=== PATIENT | female | born 1955 | race Caucasian/White ===

== ENCOUNTER 2018-03-17 15:40 | Inpatient (IN) | payer BC ==
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
--- OUTSIDE RECORDS SUMMARY | 2018-03-17 16:28 | XMS REPORT ---
:1955 External Reference #:[id number] Author Organization [employer] Address [address] [place] [address] [place] [address] Phone [phone] Care Team Providers Name Role Phone Patient's Choice Primary Care Physician Unavailable Payers Type Date Identification Numbers Payment Provider Subscriber Commercial Policy Number: [id number] [employer] Radha Dubon PayID: [id number] [address] [address] [place] [address] Problems Date Description Provider Status Onset: 03/17/2018 Closed fracture of lumbar vertebra Rizwan Antony MD Active without spinal cord injury Social History Type Date Description Comments Smoking Patient is a former smoker Allergies, Adverse Reactions, Alerts Date Description Reaction Status Severity Comments 03/17/2018 Codeine active 03/17/2018 Hydrocodone active Medications Medication Date Status Form Strength Qnty SIG Indications Ordering Provider Nuedexta / Active Capsules 20-10mg qd Unknown 0000 Loratadine / Active Capsules 10mg once a day Unknown 0000 for allergies as needed Sinemet / Active Tablets 25-100mg 1 by mouth Unknown 0000 three times a day 30 mintues prior to meals Rivastigmine / Active Patches 4.6mg/24HR 1 patch Unknown Transdermal 0000 24HR each day System Pantoprazole 00/ Active Tablets DR 40mg 1 by mouth Unknown Sodium 0000 every day Lexapro 0000/ Active Tablets 10mg 1 by mouth Unknown 0000 every day Vital Signs Date Vital Result Comment 03/17/2018 BP Systolic Sitting 100 mmHg BP Diastolic Sitting 60 mmHg Pain Level 8 Results Description No Information Procedures Description No Information Plan of Care 03/17/2018 - Rizwan Antony [id number] Unsp fracture of unsp lumbar vertebra, init for clos fxNew Xrays:CT Spine Lumbar W/OSP Lumbarsacral 4+ VWSSpine Thoracolumbar StandingReferral:Jose Rodriguez M.D., Neurology
--- OUTSIDE RECORDS SUMMARY | 2018-03-17 16:28 | XMS REPORT ---
:1955 External Reference #:[id number] Author Organization [employer] Address [address] [place] [address] [place] [address] Phone [phone] Care Team Providers Name Role Phone Patient's Choice Primary Care Physician Unavailable Payers Type Date Identification Numbers Payment Provider Subscriber Commercial Policy Number: [id number] [employer] Radha Dubon PayID: [id number] [address] [address] [place] [address] Problems Date Description Provider Status Onset: 03/17/2018 [...]
[2018-03-17 16:38] LABS: ABS Basophils 0.1 10^3/ul (0-0.2); ABS Eosinophils 0.1 10^3/ul (0-0.6); ABS Lymphocytes 1.6 10^3/ul (1.0-4.8); ABS Monocytes 0.7 10^3/ul (0-0.8); ABS Neutrophils 8.6 10^3/ul (1.5-7.7); ABS Nucleated RBC 0 10^3/ul; Eosinophil % 1.3 % (0-6); Hematocrit 40 % (35-47); Hemoglobin 13.8 g/dl (12.0-16.0); Lymphocyte % 14.1 % (25-47); Mean Corpuscular HGB Conc 35 g/dl (31-36); Mean Corpuscular Hemoglobin 34 pg (27-31); Mean Corpuscular Volume 99 fL (80-97); Mean Platelet Volume 7.6 um3 (7.4-10.4); Nucleated Red Blood Cells % 0.1; Platelet Count 364 10^3/ul (150-450); Red Blood Count 4.02 10^6/ul (4.00-5.40); Red Cell Distribution Width 14 % (10.5-15); White Blood Count 11.1 10^3/ul (3.5-10.8)
[2018-03-17 16:51] LABS: INR 0.98 (0.77-1.02)
[2018-03-17 17:05] LABS: EGFR Non-African American 66.4 (>60)
--- NOTE | 2018-03-17 17:22 | RAD ---
INDICATION: Lumbar spine pain COMPARISON: There are no prior studies available for comparison. TECHNIQUE: Contiguous axial sections were obtained beginning lower thoracic vertebra and continuing through the sacrum. Images were reconstructed in the sagittal and coronal planes. FINDINGS: There are compression fractures of the T12 and L1 vertebral bodies or severely affecting L1 and T12. At the posterior superior endplate of the L1 vertebral body there is retropulsion of bony fragments measuring 6 mm from the posterior boundary of the middle column. There is vacuum disc phenomenon at T11/T12 and L1/L2. On the axial images there is moderate to severe central canal stenosis at T12/L1 due to bony retropulsion as well as protrusion of the intervertebral disc space and facet arthropathy. At other levels there is loss of intervertebral disc height. There is broad-based disc protrusion at L4/L5 combining with thickening of the ligamentum flavum and facet arthropathy to cause a mild degree of central canal and mild bilateral neural foraminal stenoses. There is coarse atherosclerotic calcification of the aorta. IMPRESSION: 1. Age indeterminate compression deformities of T12 and L1. At L1 there is retropulsion of bony fragments at the posterior superior endplate of the vertebral body contributing to moderate central canal stenosis. 2. Degenerative changes noted at additional levels as well.
--- NOTE | 2018-03-17 17:39 | RAD ---
INDICATION: Preoperative chest x-ray in a patient with back pain COMPARISON: None. TECHNIQUE: Single AP view of the chest was obtained. FINDINGS: The heart and mediastinum exhibit normal size and contour. The lungs are grossly clear. There is no evidence of a large pleural effusion. Visualized bones are normal for the patient's age. IMPRESSION: No radiographic evidence for acute cardiopulmonary abnormality on this single AP view chest x-ray.
[2018-03-17 17:55] LABS: Urine Appearance Clear; Urine Blood Negative (Negative); Urine Color Straw; Urine Ketones Negative (Negative); Urine Protein Negative (Negative); Urine Red Blood Cell Trace(0-2/hpf) (Absent); Urine Specific Gravity 1.003 (1.010-1.030); Urine Urobilinogen Negative (Negative); Urine White Blood Cell 1+(6-10/hpf) (Absent)
[2018-03-17] MEDS ORDERED: Morphine INJ* 2 MG/ML 1 ML SYRINGE (TWO MG - NEW SYRINGE VERSION) IV PRN (17:56)
[2018-03-17] MEDS ORDERED: Acetaminophen TAB* 325 MG PO PRN (17:56)
[2018-03-17] MEDS ORDERED: Ondansetron INJ* 2 MG/ML VIAL IV PRN (17:56)
--- NOTE | 2018-03-17 18:43 | RAD ---
INDICATION: Back pain COMPARISON: None. TECHNIQUE: 2 views of the lumbar spine and 2 views of the thoracic spine were obtained. FINDINGS: There are compression deformities of T12 and L1, more severely affecting L1. There appears to be retropulsion of fragments of the superior posterior endplate of the L1 vertebral body. Degenerative changes at other levels include loss of intervertebral disc height and anterior marginal osteophyte formation, most severely affecting the mid-level and lower thoracic spine. The vertebra are otherwise appropriately aligned. IMPRESSION: Degenerative changes as described above including age indeterminate compression deformities of T12 and L1.
--- NOTE | 2018-03-17 18:45 | RAD ---
INDICATION: Back pain COMPARISON: Same day CT of the L-spine TECHNIQUE: Axial source images of the thoracic spine were acquired with coronal and sagittal reformatting. FINDINGS: Degenerative changes of the thoracic spine includes loss of intervertebral disc height and anterior marginal osteophyte formation at the mid-level and lower thoracic spine. As was visualized on same-day lumbar CT scan, there is compression deformity involving the superior endplate of the T12 vertebral body as well as a more severe compression deformity of the L1 vertebral body. The superior posterior endplate of the L1 vertebral body exhibits a small degree of retropulsion. There is calcified atherosclerosis of the lower abdominal aorta. Lungs are grossly clear but there are centrilobular emphysematous changes. IMPRESSION: Compression deformities of T12 and L1 as were identified and described on the same day CT of the lumbar spine. There are degenerative changes of the thoracic spine more superiorly but no compression fractures and severe at T12 and L1
[2018-03-17] MEDS ORDERED: Carbidopa/Levodop 25/100 MG TAB(*) PO SCH (21:00)
[2018-03-17] MEDS ORDERED: Heparin VIAL(*) 5000 UNITS/ML VIAL (FIVE THOUSAND) SUBCUT SCH (22:00)
--- NOTE | 2018-03-17 22:34 | HP ---
CC: Provider at [facility] * HISTORY AND PHYSICAL: DATE OF ADMISSION: 03/17/18 PRIMARY CARE PROVIDER: Provider at [facility]. CHIEF COMPLAINT: Back pain. HISTORY OF PRESENT ILLNESS: Ms. Dubon is a 62-year-old female who has a history of cortical basal ganglionic degeneration, who [place] [facility] Antony[place] office for back imaging. The patient had been living at an assisted living facility in [place], [place], up until what sounds to be October 2017. At that time she took a fall. She then developed less and less mobility. She was then sent to [facility] for subacute rehab. From there, she ultimately transitioned into long-term care. The patient had known traumatic injury to her back; however, she had not been able to be followed up by a neurosurgeon. Ultimately, an appointment was made for today with Dr. Antony. He recommended the patient present to the emergency room and ultimately be admitted for evaluation and management of what he presumed to be a severe compression fracture. The patient herself is unable to provide any significant history. She is able to answer yes/no questions fairly decently, but she does deny pain. She reports getting up and walking with a walker a couple of times since she has been transitioned to the long- term care, but the patient's sister states that she has not seen this. There have also been falls where the patient has fallen from her wheelchair. PAST MEDICAL HISTORY: 1. Cortical basal ganglionic degeneration. 2. History of left breast cancer, status post XRT and chemotherapy as well as left lumpectomy. PAST SURGICAL HISTORY: 1. Left lumpectomy. 2. Myomectomy. 3. Bilateral cataract extractions. MEDICATIONS: 1. Nuedexta 20-10 one tab p.o. daily. 2. Protonix 40 mg p.o. daily. 3. Lexapro 10 mg p.o. daily. 4. Rivastigmine patch 4.6 mg one patch topically daily. 5. Sinemet 25/100 one tab p.o. t.i.d. 6. Loratadine 10 mg p.o. daily p.r.n. allergies. ALLERGIES: HYDROCODONE causes severe confusion. FAMILY HISTORY: Mom at the age of 94 of complications from diabetes. Dad at the age of 68 of lung cancer. SOCIAL HISTORY: The patient is a former smoker. She smoked for approximately 20 years. She quit likely in the early 90s, she does not remember exactly when. She does not drink alcohol. She has never been . She has no children. Her sister Ambreen is her healthcare proxy. REVIEW OF SYSTEMS: A complete 11-system review of systems is obtained. Pertinent positives and negatives are as per HPI. In addition, the patient does complain of constipation as well as anxiety and depression. Her sister notes that the patient frequently tends to lean to the right. PHYSICAL EXAMINATION GENERAL: The patient is a well-developed middle-aged female seen lying in the stretcher, in no acute distress. VITAL SIGNS: Blood pressure 138/71, pulse 66, respirations 16, temp 98.7, O2 sat 97% on room air. HEENT: Pupils are equal and round. There is evidence of prior cataract extraction. Extraocular muscles are intact. Oropharynx is clear. Oral mucosa is moist. There is no submandibular, cervical or supraclavicular adenopathy. Thyroid is not enlarged. No thyroid nodules noted. The patient's face is flushed. PULMONARY: Lungs are clear to auscultation bilaterally. CARDIAC: Normal S1, S2. Regular rate and rhythm. I do not appreciate any murmurs. There is no lower extremity edema. ABDOMEN: Bowel sounds are present. Abdomen is soft, nontender, nondistended. MUSCULOSKELETAL: There is no cyanosis or clubbing of the digits. There is full active range of motion of the upper extremities. Lower extremities, range of motion at the hip flexors is limited. SKIN: Warm and dry. There are no rashes. NEUROLOGIC: Cranial nerves II through XII appear to be grossly intact. The patient does have somewhat of a masked facies. Sensation is intact to light touch throughout. Strength is normal in the upper extremities and distal lower extremities but slightly reduced in the proximal lower extremities. PSYCH: The patient is alert. She is oriented to situation. LABORATORY AND DIAGNOSTIC DATA: WBC 11.1, hemoglobin 13.8, hematocrit 40, platelets 364,000. INR 0.98. Sodium 138, potassium 4.3, chloride 102, CO2 of 30. BUN 13, creatinine 0.86. Glucose 102. Lactic acid 1.4. Calcium 9.5. Bilirubin 0.4. AST 19, ALT 5, alk phos 93. Troponin 0.01. Albumin 3.8. TSH 1.25. Urinalysis reveals trace leukocyte esterase, 1+ wbc and 2+ bacteria. Lumbar spine CT reveals age-indeterminate compression deformities of T12 and L1. At L1, there is retropulsion of bony fragments at the posterior-superior endplate at the vertebral body contributing to moderate central canal stenosis. Degenerative changes are noted at additional levels as well. Thoracic spine CT, compression deformities of T12 and L1 as were identified and described on the same day CT of the lumbar spine. Chest x-ray, no radiographic evidence for acute cardiopulmonary abnormality on the single AP view chest x-ray. Lumbar spine x-ray, degenerative changes and age-indeterminate compression deformities at T12 and L1. Thoracic spine x-ray, degenerative changes and age-indeterminate compression deformities of T12 and L1. ASSESSMENT AND PLAN: Ms. Dubon is a 62-year-old female who sustained a fall approximately four months ago, who has been declining since, now sent from Dr. Antony' office for evaluation of traumatic compression fracture. 1. T12 and L1 compression fractures. The patient will be seen in consultation in the hospital by Dr. Antony. I spoke with him on the phone this evening. He recommends obtaining an MRI of the lumbar spine up to T10 for better delineation of the fracture and spinal canal. Surgery may be recommended to the patient and her sister; however, the patient's sister does have concerns about the patient undergoing surgery. Tomorrow, I will reach out to the patient 's prior neurologist, Dr. Izabel Gonzáles at [facility] to get her opinion on the patient proceeding with surgery. 2. Gastroesophageal reflux disease. We will continue PPI. 3. Cortical basal ganglionic degeneration. The patient will continue on her Sinemet. Depending on how long she is in the hospital, we may need to order Exelon patches. 4. Depression and anxiety. The patient will continue on Lexapro. 5. DVT prophylaxis. According to the Adult Thrombosis Prophylaxis Risk Factor Assessment Guide, the patient has a total risk factor score of 6 making her the highest risk. She will be placed on heparin 5000 units subcutaneous q.8 hours. 6. Code status is DNR. TIME SPENT: Sixty five minutes were spent admitting this patient of which greater than half was spent [id number] with the patient and her sister reviewing her history and performing a physical exam. [id number]/[facility] #: [id number] KENNY
[2018-03-18] MEDS: Carbidopa/Levodop 25/100 MG TAB(*) PO SCH ×4 (00:06→20:32)
[2018-03-18] MEDS: Heparin VIAL(*) 5000 UNITS/ML VIAL (FIVE THOUSAND) SUBCUT SCH ×3 (00:09→16:33)
[2018-03-18] MEDS: NS 0.9% 1000 ML* 1,000 ML IV SCH ×2 (00:10→15:54)
--- NOTE | 2018-03-18 08:22 | RAD ---
HISTORY: further eval T12 and L1 fractures COMPARISONS: CT dated March 17, 2018 TECHNIQUE: The following sequences were obtained of the lumbar spine: Sagittal and axial T1- and T2-weighted images, coronal T2-weighted images, and sagittal STIR images. FINDINGS: SPINAL CORD, CONUS, AND CAUDA EQUINA: The visualized spinal cord, conus, and cauda equina are normal in caliber, position, and signal intensity. ALIGNMENT: The alignment is normal. VERTEBRAL BODIES: There is bone edema with loss of vertebral body height at T12 and L1. There is moderate retropulsion of the superior endplate of L1. JOINTS: There is mild facet osteoarthritis. MUSCULATURE: There is mild fatty infiltration. INTERVERTEBRAL DISCS: There is mild diffuse loss of intervertebral disc height and T2 signal throughout the spine. AXIAL IMAGES: T10-T11: There is no significant neural foraminal narrowing of central canal stenosis. T11-T12: There is no significant neural foraminal narrowing of central canal stenosis. T12-L1: There is moderate narrowing of central canal secondary to retropulsion of the superior endplate of L1. There is mild bilateral neural foraminal narrowing. L1-L2: There is bilateral facet hypertrophy. There is no significant neural foraminal narrowing of central canal stenosis. L2-L3: There is no disc herniation, spinal stenosis, or neuroforaminal narrowing. L3-L4: There is a broad-based disc bulge with bilateral facet hypertrophy. There is mild bilateral neural foraminal narrowing. There is mild narrowing of the central canal. L4-L5: There is bilateral facet hypertrophy. There is mild bilateral neural foraminal narrowing. There is no significant central canal stenosis. L5-S1: There is bilateral facet hypertrophy. There is mild bilateral neural femoral narrowing. There is no significant central canal stenosis. SOFT TISSUES: The visualized soft tissues of the abdomen are unremarkable. There is no ligamentous disruption or edema to suggest ligamentous injury. OTHER: None. IMPRESSION: 1. ACUTE/SUBACUTE COMPRESSION FRACTURES OF T12 AND L1 WITH RETROPULSION OF THE SUPERIOR ENDPLATE OF L1 RESULTING IN MODERATE NARROWING OF THE CENTRAL CANAL AT THIS LEVEL. 2. DEGENERATIVE DISC DISEASE AND OSTEOARTHRITIS. 3. THERE IS MILD NARROWING OF CENTRAL CANAL AT L3-L4. THERE IS MULTILEVEL NEUROFORAMINAL NARROWING DESCRIBED ABOVE. R2
[2018-03-18] MEDS: Citalopram TAB* 20 MG PO SCH (08:24)
[2018-03-18] MEDS: Omeprazole CAP* 20 MG PO SCH (08:24)
--- NOTE | 2018-03-18 18:26 | PN ---
Subjective Date of Service: 03/18/18 Interval History: Pt is feeling ok. She denies any pain. She denies SOB. She states she needs something but I can not understand what she is asking. Objective Active Medications: Acetaminophen (Tylenol Tab*) 650 mg PO Q4H PRN PRN Reason: PAIN Carbidopa/Levodopa (Sinemet 25/100 Tab(*)) 1 tab PO 0900,1400,2100 [facility] Last Admin: 03/18/18 14:04 Dose: 1 tab Citalopram Hydrobromide (Celexa Tab*) 20 mg PO DAILY [facility] Last Admin: 03/18/18 08:24 Dose: 20 mg Heparin Sodium (Porcine) (Heparin Vial(*)) 5,000 units SUBCUT 0000,0800,1600 [facility] Last Admin: 03/18/18 16:33 Dose: 5,000 units Sodium Chloride (Ns 0.9% 1000 Ml*) 1,000 mls @ 75 mls/hr IV PER RATE [facility] Last Admin: 03/18/18 15:54 Dose: 75 mls/hr Ceftriaxone Sodium 1 gm/ (Sodium Chloride) 50 mls @ 200 mls/hr IVPB Q24H [facility] Morphine Sulfate (Morphine Inj ((Syringe))*) 2 mg IV Q4H PRN PRN Reason: PAIN - MILD Omeprazole (Prilosec Cap*) 20 mg PO DAILY [facility] Last Admin: 03/18/18 08:24 Dose: 20 mg Ondansetron HCl (Zofran Inj*) 4 mg IV Q6H PRN PRN Reason: NAUSEA Tramadol HCl (Ultram*) 50 mg PO Q12H PRN PRN Reason: PAIN Vital Signs - 8 hr 03/18/18 03/18/18 11:23 15:46 Temperature 98.0 F 97.5 F Pulse Rate 66 68 Respiratory 16 20 Rate Blood Pressure 126/68 136/78 (mmHg) O2 Sat by Pulse 98 96 Oximetry Oxygen Devices in Use Now: None Appearance: Middle aged female sitting up in bed, NAD Eyes: No Scleral Icterus Ears/Nose/Mouth/Throat: Mucous Membranes Moist Respiratory: Symmetrical Chest Expansion and Respiratory Effort, Clear to Auscultation - anteriorly Cardiovascular: NL Sounds; No Murmurs; No JVD, RRR, No Edema Abdominal: NL Sounds; No Tenderness; No Distention Extremities: No Clubbing, Cyanosis Skin: No Nodules or Sclerosis Neurological: - - alert, oriented to self Result Diagrams: 03/17/18 16:31 03/17/18 16:31 Microbiology and Other Data: Microbiology 03/17/18 17:41 Urine Culture - Preliminary Urine Escherichia Coli 03/18/18 00:13 Nasal Screen MRSA (PCR) - Final Nasal Mrsa Not Detected Assess/Plan/Problems-Billing 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 - Patient Problems (1) Compression fracture Current Visit: Yes Status: Acute Code(s): [id number] - SNOMED Code(s): 267006790 Comment: No pain per pt. Await recommendations from Dr. Antony. I spoke with the patient's neurologist who has concerns with the patient undergoing surgery. She does not know if there is a true indication to take the patient as she does not report pain or have loss of bowel/bladder control. If there was a palliative reason to go to surgery she felt that would be appropriate but she does not think the patient will become suddenly much more ambulatory than she already is. (2) Corticobasal degeneration Current Visit: Yes Status: Acute Code(s): G31.85 - CORTICOBASAL DEGENERATION SNOMED Code(s): 01796276 Comment: Continue current medication regimen. (3) UTI (urinary tract infection) Current Visit: Yes Status: Acute Comment: Pts urine grew E coli. Will start ceftriaxone for UTI. (4) DVT prophylaxis Current Visit: Yes Status: Acute Code(s): [id number] - SNOMED Code(s): 859471247 Comment: SQ heparin (5) DNR (do not resuscitate) Current Visit: Yes Status: Acute
[2018-03-18] MEDS: cefTRIAXone(*) 1 GM in NS 0.9% 50 ML* 50 ML IVPB SCH (20:03)
[2018-03-19] MEDS: Heparin VIAL(*) 5000 UNITS/ML VIAL (FIVE THOUSAND) SUBCUT SCH ×4 (00:22→23:33)
[2018-03-19] MEDS: traMADol TAB* 50 MG PO PRN ×2 (04:28→16:26)
--- NOTE | 2018-03-19 05:24 | CONS ---
CONSULTATION REPORT: DATE OF CONSULT: 03/18/18 - ROOM #340 HISTORY OF PRESENT ILLNESS: The patient is a very pleasant 62-year-old right- handed female with a history of corticobasal ganglionic degeneration, who was seen yesterday in outpatient surgical clinic. The patient was reported to have sustained a fall on 10/31/17, while she was living in an Assisted Living Facility. The patient at that time had difficulty with ambulation. She had to walk with a walker and has significant dementia. She was transferred to the local hospital and after further investigations, she was diagnosed with L1 fracture and was treated conservatively. The patient had a repeat MRI of the lumbar spine on 02/05/18, that revealed progression of her L1 fracture per report and she was referred to our office as an outpatient consultation. The patient was found to have significant weakness in hip flexion as well as significant amount of pain. Because of her clinical condition as well as the difficulty with social support, she was advised to come to the emergency room for further evaluation and further imaging. The patient was currently admitted by Internal Medicine service after being diagnosed with the chronic L1 burst fracture with moderate retropulsion as well as with subacute superior compression fracture of T12. The patient reports this morning that her pain has significantly improved, and she is lying comfortably in bed. She is a poor historian, but she reports that she has no weakness, numbness, or tingling of her extremities. She denies any urinary or GI incontinence and per report, the patient knows when to ask for bed montes, although as her sister reported earlier in the office, the patient is unable to ambulate to the bathroom and she ends up soiling herself. The patient was followed by her neurologist in [place] for her corticobasal ganglionic degeneration and the patient's sister was very reluctant to consider surgical intervention even if it was an option because of her poor neurological baseline. 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 She is single, lives at the senior care in rehabilitation facility. The patient has no children. The patient's sister is her healthcare proxy. PAST MEDICAL HISTORY: 1. 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 3. Breast cancer status post history of lobectomy. 4. Myomectomy. 5. Cataract surgery. ALLERGIES: HYDROCODONE. MEDICATIONS: The patient at home was on: 1. Nuedexta. 2. Loratadine. 3. Sinemet. 4. Rivastigmine. 5. Pantoprazole. 6. Lexapro. FAMILY HISTORY: Noncontributory. SOCIAL HISTORY: Tobacco negative. She was a former smoker. Alcohol negative. Recreational drug use negative. PHYSICAL EXAM: The patient is not in acute distress. She is resting comfortably in her bed. She does not complain of any pain. She has a free range of motion of cervical spine. She has no tenderness over her cervical, thoracic, or lumbar spine. She is awake, alert, and oriented x2. Her pupils are equal and reactive. Cranial nerves II through XII grossly intact. Motor 4 to 5/5 in all extremities with exception of hip flexion, which is 4-/5. Sensory is grossly intact to light touch. Deep tendon reflexes +1 bilaterally. No clonus. No Babinski. Adams's negative. Straight leg raising test negative in the sitting position. IMAGING DATA: The patient had a CT scan of her lumbar-thoracic spine that revealed the known L1 burst fracture with retropulsion and moderate canal compromise as well as superior end-plate fracture, compression fracture T12, which is new compared to previous MRI from January. The patient had also thoracic and lumbar spine x-rays that revealed similar findings in the available x-rays. The patient does not have significant kyphosis at her lumbar fracture segment. The patient also had an MRI of the lumbar spine revealing subacute fractures at L1 as well as at T12 with evidence of retropulsion. There is no obvious cord compression, but the retropulsed fragments abut the patient's spinal cord. ASSESSMENT: This is a pleasant 62-year-old female with history of corticobasal ganglionic degeneration and recent fall in October 2017 with a known L1 burst fracture as well as a subacute T12 compression fracture. PLAN: The patient at this point is very comfortable. Based on her imaging, the patient may be a candidate for surgical intervention although after Dr. Swenson discussed with her neurologist, the patient's prognosis in terms of ability to ambulate as well as mental status is quite poor and believes she has significant limitations in her ability to ambulate and even stand and it is expected that this will naturally deteriorate over time. The patient is very comfortable and there are no obvious neurological deficits. Her TLICS score is 4 and at this point, offering surgery is a consideration, but given her comorbidities and her functional status, it might be very difficult for her to tolerate the procedure or gain significant benefits. We would recommend a thoracolumbar orthosis and attempt to obtain upright x-rays of thoracolumbar spine to assess her overall spinal alignment and the degree of kyphosis and we would be happy to discuss with patient's sister regarding the possibility of surgical intervention versus conservative treatments. At this point, we recommend bed rest and attempt to get out of bed only with brace in order to obtain the upright x-rays. Thank you for allowing us to participate in the care of this patient. Please do not hesitate to contact our office in case of any further questions or concerns regarding the care of this patient. [id number]/[facility] #: [id number] KENNY
[2018-03-19] MEDS: NS 0.9% 1000 ML* 1,000 ML IV SCH ×2 (06:15→21:20)
[2018-03-19] MEDS: Omeprazole CAP* 20 MG PO SCH (08:26)
[2018-03-19] MEDS: Citalopram TAB* 20 MG PO SCH (08:27)
[2018-03-19] MEDS: Carbidopa/Levodop 25/100 MG TAB(*) PO SCH ×3 (08:27→20:32)
[2018-03-19] MEDS: cefTRIAXone(*) 1 GM in NS 0.9% 50 ML* 50 ML IVPB SCH (17:48)
--- NOTE | 2018-03-19 18:16 | PN ---
Subjective Date of Service: 03/19/18 Interval History: No overnight events. She says she feels "okay" and denies pain. Objective Active Medications: Acetaminophen (Tylenol Tab*) 650 mg PO Q4H PRN PRN Reason: PAIN Carbidopa/Levodopa (Sinemet 25/100 Tab(*)) 1 tab PO 0900,1400,2100 [facility] Last Admin: 03/19/18 14:14 Dose: 1 tab Citalopram Hydrobromide (Celexa Tab*) 20 mg PO DAILY [facility] Last Admin: 03/19/18 08:27 Dose: 20 mg Docusate Sodium (Colace Cap*) 100 mg PO BID PRN PRN Reason: CONSTIPATION Heparin Sodium (Porcine) (Heparin Vial(*)) 5,000 units SUBCUT 0000,0800,1600 [facility] Last Admin: 03/19/18 16:23 Dose: 5,000 units Sodium Chloride (Ns 0.9% 1000 Ml*) 1,000 mls @ 75 mls/hr IV PER RATE [facility] Last Admin: 03/19/18 06:15 Dose: 75 mls/hr Ceftriaxone Sodium 1 gm/ (Sodium Chloride) 50 mls @ 200 mls/hr IVPB Q24H [facility] Last Admin: 03/19/18 17:48 Dose: 200 mls/hr Morphine Sulfate (Morphine Inj ((Syringe))*) 2 mg IV Q4H PRN PRN Reason: PAIN - MILD Omeprazole (Prilosec Cap*) 20 mg PO DAILY [facility] Last Admin: 03/19/18 08:26 Dose: 20 mg Ondansetron HCl (Zofran Inj*) 4 mg IV Q6H PRN PRN Reason: NAUSEA Polyethylene Glycol/Electrolytes (Miralax*) 17 gm PO DAILY [facility] Tramadol HCl (Ultram*) 50 mg PO Q12H PRN PRN Reason: PAIN Last Admin: 03/19/18 16:26 Dose: 50 mg Vital Signs - 8 hr 03/19/18 03/19/18 03/19/18 11:12 15:53 16:26 Temperature 97.6 F 98.0 F Pulse Rate 71 74 Respiratory 16 20 20 Rate Blood Pressure 124/77 132/98 (mmHg) O2 Sat by Pulse 94 94 Oximetry Oxygen Devices in Use Now: None Appearance: sleepy, alerts to voice Eyes: No Scleral Icterus Ears/Nose/Mouth/Throat: NL Teeth, Lips, Gums Neck: NL Appearance and Movements; NL JVP Respiratory: Symmetrical Chest Expansion and Respiratory Effort, Clear to Auscultation Cardiovascular: NL Sounds; No Murmurs; No JVD, RRR Abdominal: NL Sounds; No Tenderness; No Distention Lymphatic: No Cervical Adenopathy Skin: - - cogwheel rigidity Result Diagrams: 03/17/18 16:31 03/17/18 16:31 Microbiology and Other Data: Microbiology 03/17/18 17:41 Urine Culture - Preliminary Urine Escherichia Coli 03/18/18 00:13 Nasal Screen MRSA (PCR) - Final Nasal Mrsa Not Detected Assess/Plan/Problems-Billing 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 - Patient Problems (1) Compression fracture Current Visit: Yes Status: Acute Code(s): [id number] - SNOMED Code(s): 945293911 Comment: Evaluated by Dr. Luu; case also discussed between Dr. Swenson and patient's neurologist, who suggests a poor prognosis from an ambulation standpoint, and does not believe surgery would change that endpoint. I discussed this with her sister, who agrees but wishes to continue to be informed. Thoracolumbar brace obtained today. Check upright Xrays today (2) Corticobasal degeneration Current Visit: Yes Status: Acute Code(s): G31.85 - CORTICOBASAL DEGENERATION SNOMED Code(s): 00725314 Comment: Continue carbidopa/levodopa (3) UTI (urinary tract infection) Current Visit: Yes Status: Acute Comment: Pts urine grew E coli. Ceftriaxone day 2
[2018-03-19] MEDS: Docusate CAP* 100 MG PO PRN (23:33)
[2018-03-20] MEDS: Heparin VIAL(*) 5000 UNITS/ML VIAL (FIVE THOUSAND) SUBCUT SCH ×3 (08:08→23:43)
[2018-03-20] MEDS: Citalopram TAB* 20 MG PO SCH (09:13)
[2018-03-20] MEDS: Polyethylene Glycol 3350* 17 GM PACKET PO SCH (09:13)
[2018-03-20] MEDS: Carbidopa/Levodop 25/100 MG TAB(*) PO SCH ×3 (09:13→21:36)
[2018-03-20] MEDS: Omeprazole CAP* 20 MG PO SCH (09:13)
--- NOTE | 2018-03-20 10:18 | PN ---
Subjective Date of Service: 03/20/18 Interval History: PT attempted to work with her yesterday after the brace was applied but she could not stand. A star was required to get her out of bed. She is in the chair this morning. Her RN Taylor today reports increased spasticity and tremors and hallucinations. Ms. Dubon denies pain to me. She smiles appropriately to jokes but is unable to communicate her needs. She does nod yes and no. Objective Active Medications: Acetaminophen (Tylenol Tab*) 650 mg PO Q4H PRN PRN Reason: PAIN Last Admin: 03/19/18 23:32 Dose: 650 mg Carbidopa/Levodopa (Sinemet 25/100 Tab(*)) 1 tab PO 0900,1400,2100 [facility] Last Admin: 03/20/18 09:13 Dose: 1 tab Citalopram Hydrobromide (Celexa Tab*) 20 mg PO DAILY [facility] Last Admin: 03/20/18 09:13 Dose: 20 mg Docusate Sodium (Colace Cap*) 100 mg PO BID PRN PRN Reason: CONSTIPATION Last Admin: 03/19/18 23:33 Dose: 100 mg Heparin Sodium (Porcine) (Heparin Vial(*)) 5,000 units SUBCUT 0000,0800,1600 [facility] Last Admin: 03/20/18 08:08 Dose: 5,000 units Sodium Chloride (Ns 0.9% 1000 Ml*) 1,000 mls @ 75 mls/hr IV PER RATE [facility] Last Admin: 03/19/18 21:20 Dose: 75 mls/hr Ceftriaxone Sodium 1 gm/ (Sodium Chloride) 50 mls @ 200 mls/hr IVPB Q24H [facility] Last Admin: 03/19/18 17:48 Dose: 200 mls/hr Morphine Sulfate (Morphine Inj ((Syringe))*) 2 mg IV Q4H PRN PRN Reason: PAIN - MILD Last Admin: 03/20/18 08:08 Dose: 2 mg Omeprazole (Prilosec Cap*) 20 mg PO DAILY [facility] Last Admin: 03/20/18 09:13 Dose: 20 mg Ondansetron HCl (Zofran Inj*) 4 mg IV Q6H PRN PRN Reason: NAUSEA Polyethylene Glycol/Electrolytes (Miralax*) 17 gm PO DAILY [facility] Last Admin: 03/20/18 09:13 Dose: 17 gm Rivastigmine Tartrate (Exelon (Nf)) 1.5 mg PO TID [facility] Tramadol HCl (Ultram*) 50 mg PO Q12H PRN PRN Reason: PAIN Last Admin: 03/19/18 16:26 Dose: 50 mg Vital Signs - 8 hr 03/20/18 03/20/18 03/20/18 04:26 05:08 07:39 Temperature 97.7 F 98.8 F Pulse Rate 97 120 70 Respiratory 16 Rate Blood Pressure 99/21 120/69 150/83 (mmHg) O2 Sat by Pulse 95 96 Oximetry 03/20/18 03/20/18 08:08 09:46 Temperature Pulse Rate Respiratory 20 18 Rate Blood Pressure (mmHg) O2 Sat by Pulse Oximetry Oxygen Devices in Use Now: None Appearance: alert, comfortable in the chair, no distress Eyes: No Scleral Icterus Ears/Nose/Mouth/Throat: NL Teeth, Lips, Gums Neck: NL Appearance and Movements; NL JVP Respiratory: Symmetrical Chest Expansion and Respiratory Effort Cardiovascular: NL Sounds; No Murmurs; No JVD, RRR Abdominal: NL Sounds; No Tenderness; No Distention Lymphatic: No Cervical Adenopathy Extremities: No Edema Skin: No Rash or Ulcers Neurological: - - unable to test orientation. tremors throughout that improve with passive motion. she does not voluntarily lift her legs but when I lift them, she can hold them up. 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 - Patient Problems (1) Compression fracture Current Visit: Yes Status: Acute Code(s): [id number] - SNOMED Code(s): 587716250 Comment: She is considered to be a candidate for surgery with Dr. Luu , but the question remains whether this would help her prognosis for ambulation , sitting upright, or standing overall, given her underlying neurologic disorder that has caused a decline in her functional capacity even before the fracture, according to her sister Ambreen. Surgery naturally comes with risks but might yenifer her the ability to sit up in her wheelchair. If she does so, she may be at risk for more compression fractures requiring more surgery in the future. Not operating comes with the risks of worsening neurologic function and paralysis, but also the possibility that she may continue to heal with bracing. I discussed this again with Dr. Luu. Radha's sister Ambreen is supposed to be coming in today and I will discuss these options with her again. (2) Corticobasal degeneration Current Visit: Yes Status: Acute Code(s): G31.85 - CORTICOBASAL DEGENERATION SNOMED Code(s): 68566508 Comment: Continue carbidopa/levodopa Add back rivastigmine today, as I believe the withdrawal may be causing some of her hallucinations (3) UTI (urinary tract infection) Current Visit: Yes Status: Acute Comment: Pts urine grew E coli. Ceftriaxone day 3.
[2018-03-20] MEDS ORDERED: CMCS Rivastigmine CAP(NF) 1.5 MG CAP PO SCH (10:22)
[2018-03-20] MEDS: CMC:Rivastigmine PATCH 9.5 MG(NF) PATCH TRANSDERM SCH (13:08)
[2018-03-20] MEDS ORDERED: CMC:Rivastigmine CAP(NF) 1.5 MG CAP PO SCH (14:00)
--- NOTE | 2018-03-20 15:30 | PN ---
Hospitalist Progress Note Date of Service: 03/20/18 Case discussed at length with Radha's sister Ambreen and Dr. Luu. Ambreen wishes to pursue a conservative management plan and to avoid surgery for her sister. I explained to her the risk of worsening neurological decline including paralysis. We also discussed the risks of surgery. She prefers the risk of not operating. We will continue the thoracolumbar brace. SHe also related that rivastigmine pills have not worked for her in the past, so I discussed this with her neurologist Dr. Gonzáles in [place], and she recommended the higher dose rivastigmine patch that we have on formulary. Case management spoke with the patient's rehab facility, and they are unable to accept her back until Friday. In the meantime, Dr. Luu is recommending a CT brain and CT c-spine, which I am ordering.
--- NOTE | 2018-03-20 16:39 | RAD ---
indication: Confusion COMPARISON: None A CT scan of the brain and c-spine was performed without intravenous contrast enhancement. Contiguous axial sections were obtained from the lung apices through the vertex. BRAIN: The ventricles, cisterns and sulci exhibit mild symmetrical involutional changes.. No significant focal abnormality or mass effect is seen. The michelle-white differentiation is adequately maintained. There is no intracranial hemorrhage. No significant bony abnormality is present. The mastoid air cells are appropriately aerated. There is near complete opacification of the visualized portion of the right maxillary sinus. C-SPINE: On the sagittal view there is straightening of the normal cervical lordosis and apparent exaggerated kyphosis of the thoracic spine. The vertebral bodies and facet joints are otherwise appropriately aligned. Mild degenerative changes include loss of intervertebral disc height at multiple levels. There is no hyperdense material in the cervical canal to indicate hemorrhage. The visualized musculature and soft tissues are normal. There is no gross lymphadenopathy visualized. The visualized portion of the lung apices are clear. IMPRESSION: 1. No CT apparent acute intracranial abnormality. 2. Right maxillary sinusitis. 3. Degenerative changes of the cervical spine without fracture or severe spondylolisthesis.
[2018-03-20] MEDS: Amoxicillin/Clavulanate TAB* 500 MG PO SCH (21:36)
--- NOTE | 2018-03-20 23:40 | PN ---
Progress Note - Progress Note Date of Service: 03/20/18 SOAP: Subjective: []Patient was seen earlier today. No events ON. Unable to get upright with PT yesterday. No events ON. Sister at the bedside. Objective: []VSS AAOx1-2, ELOY, CN II-XII grossly intact Motor 4-5/5 except deangelo hip flexion 4/5. Increase tone in LEs Sensory grossly intact to light touch. Assessment: []62 yo f , CBGD fall L1 burst fructure, T12 superior compression fracture Plan: []Monitor VS, Neurochecks Patient is reported to have sustained an other fall in the [place], after her original fall in October, as her sister reports today. Per sister, patient's neurological condition is stable. Patient had spasticity of her extremities and cognitive decline prior to her initial fall. Discussed in extend patient's imaging, condition and treatment options. Discussed possibility of spine instability and offered the option of surgical intervention for stabilization of patient's spine. Discussed in extend expectations, limitations and possible complications with patient's sister. Also discussed possible risks of conservative treatment including prolonged immobilization, risk of DVT, PE, PNA, paralysis and . Given the poor cognitive status, limited mobility at baseline, comorbitities and poor prognosis from her CBGD per her neurologist, patient's sister elected to continue with conservative treatment, understanding risks, benefites and possible outcomes of all treatment options. We would obtain a baseline CT of head and C spine and continue with conservative treatment with TLSO brace, per patient's sister wishes. Greatly appreciate IM care. Mina Antony MD
[2018-03-20] MEDS: Docusate CAP* 100 MG PO PRN (23:43)
[2018-03-21] MEDS: Heparin VIAL(*) 5000 UNITS/ML VIAL (FIVE THOUSAND) SUBCUT SCH ×2 (08:23→16:42)
[2018-03-21] MEDS: CMC:Rivastigmine PATCH 9.5 MG(NF) PATCH TRANSDERM SCH (09:12)
[2018-03-21] MEDS: Amoxicillin/Clavulanate TAB* 500 MG PO SCH ×2 (09:13→21:10)
[2018-03-21] MEDS: Docusate CAP* 100 MG PO PRN (09:13)
[2018-03-21] MEDS: Polyethylene Glycol 3350* 17 GM PACKET PO SCH (09:13)
[2018-03-21] MEDS: Citalopram TAB* 20 MG PO SCH (09:13)
[2018-03-21] MEDS: Omeprazole CAP* 20 MG PO SCH (09:13)
[2018-03-21] MEDS: Carbidopa/Levodop 25/100 MG TAB(*) PO SCH ×3 (09:13→21:10)
--- NOTE | 2018-03-21 11:11 | PN ---
Subjective Date of Service: 03/21/18 Interval History: Patient seen and examined at bedside. Per NSG staff Pt had a seizure like episode (they described convulsing and unresponsiveness). Pt noted to have intermittent "jerky" movement of all extremities. Pt has frequent movements of extremities and cognitive decline at baseline. Denies fever, chills, shortness of breath, chest discomfort, N/V/D or pain. Pt is able to mostly answer yes or no questions. Family History: Unchanged from Admission Social History: Unchanged from Admission Past Medical History: Unchanged from Admission Objective Active Medications: Acetaminophen (Tylenol Tab*) 650 mg PO Q4H PRN Reason: PAIN Amoxicillin/Clavulanate Potassium (Augmentin Tab*) 500 mg PO BID RENEE Carbidopa/Levodopa (Sinemet 25/100 Tab(*)) 1 tab PO 0900,1400,2100 RENEE Citalopram Hydrobromide (Celexa Tab*) 20 mg PO DAILY RENEE Docusate Sodium (Colace Cap*) 100 mg PO BID PRN Reason: CONSTIPATION Heparin Sodium (Porcine) (Heparin Vial(*)) 5,000 units SUBCUT 0000,0800,1600 RENEE Morphine Sulfate (Morphine Inj ((Syringe))*) 2 mg IV Q4H PRN Reason: PAIN - MILD Omeprazole (Prilosec Cap*) 20 mg PO DAILY RENEE Ondansetron HCl (Zofran Inj*) 4 mg IV Q6H PRN Reason: NAUSEA Polyethylene Glycol/Electrolytes (Miralax*) 17 gm PO DAILY RENEE Rivastigmine (Exelon Patch(Nf)) 1 patch TRANSDERM DAILY RENEE Tramadol HCl (Ultram*) 50 mg PO Q12H PRN Reason: PAIN Vital Signs - 8 hr 03/21/18 03/21/18 03:35 07:26 Temperature 97.7 F 99.2 F Pulse Rate 66 65 Respiratory 16 20 Rate Blood Pressure 123/64 121/65 (mmHg) O2 Sat by Pulse 95 93 Oximetry Oxygen Devices in Use Now: None Appearance: NAD, laying in bed Ears/Nose/Mouth/Throat: Mucous Membranes Moist Respiratory: Symmetrical Chest Expansion and Respiratory Effort, Clear to Auscultation Cardiovascular: NL Sounds; No Murmurs; No JVD, RRR Abdominal: NL Sounds; No Tenderness; No Distention Extremities: No Edema Skin: No Rash or Ulcers Neurological: NL Muscle Strength and Tone, - - Alert and Oriented to self Nutrition: Taking PO's Result Diagrams: 03/17/18 16:31 03/17/18 16:31 Microbiology and Other Data: Microbiology 03/17/18 17:41 Urine Culture - Preliminary Urine Escherichia Coli 03/18/18 00:13 Nasal Screen MRSA (PCR) - Final Nasal Mrsa Not Detected Assess/Plan/Problems-Billing Assessment: 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 - Patient Problems (1) Compression fracture Code(s): [id number] - SNOMED Code(s): 015214384 Comment: - Per Dr. Luu she is a candidate for surgery, but the question remains whether this would help her prognosis for ambulation, sitting upright, or standing overall, given her underlying neurologic disorder that has caused a decline in her functional capacity even before the fracture, according to her sister Ambreen - Surgery naturally comes with risks but might yenifer her the ability to sit up in her wheelchair. If she does so, she may be at risk for more compression fractures requiring more surgery in the future. - Not operating comes with the risks of worsening neurologic function and paralysis, but also the possibility that she may continue to heal with bracing. - Discussed with Dr. Luu and Radha's sister Ambreen and plan is for conservative treatment (2) Corticobasal degeneration Code(s): G31.85 - CORTICOBASAL DEGENERATION SNOMED Code(s): 03589124 Comment: - Continue carbidopa/levodopa and rivastigmine (3) UTI (urinary tract infection) Comment: - Urine culture with E coli - Received 3/3 days of Ceftriaxone - Continue Augmentin (4) DVT prophylaxis Code(s): XAA0090 - SNOMED Code(s): 959304774 Comment: - SQ heparin (5) DNR (do not resuscitate) Status and Disposition: Inpatient. Plan for possible discharge back to rehab on Friday.
--- NOTE | 2018-03-21 14:34 | PN ---
Progress Note - Progress Note Date of Service: 03/21/18 SOAP: Subjective: [] No events ON. Tolerates PO. No complains of back pain. on brace. Objective: []]VSS AAOx1-2, ELOY, CN II-XII grossly intact Motor 4-5/5 except deangelo hip flexion 4/5. Increase tone in LEs Sensory grossly intact to light touch. Assessment: []62 yo f , CBGD fall L1 burst fructure, T12 superior compression fracture Plan: []Monitor VS, Neurochecks CT brain: No intracranial injury. CT C spine: No acute fracture. DC Planning Medical treatment of possible osteopenia/osteoporosis May folow in office in 4 weeks with new XR of T/L spine. Greatly appreciate IM care. Will be available if needed. Mina Antony MD
[2018-03-22] MEDS: Heparin VIAL(*) 5000 UNITS/ML VIAL (FIVE THOUSAND) SUBCUT SCH ×4 (07:37→23:59)
[2018-03-22] MEDS: Amoxicillin/Clavulanate TAB* 500 MG PO SCH ×2 (08:42→21:14)
[2018-03-22] MEDS: CMC:Rivastigmine PATCH 9.5 MG(NF) PATCH TRANSDERM SCH (08:42)
[2018-03-22] MEDS: Omeprazole CAP* 20 MG PO SCH (08:43)
[2018-03-22] MEDS: Carbidopa/Levodop 25/100 MG TAB(*) PO SCH ×3 (08:43→21:14)
[2018-03-22] MEDS: Citalopram TAB* 20 MG PO SCH (08:43)
[2018-03-22] MEDS: Polyethylene Glycol 3350* 17 GM PACKET PO SCH (09:02)
--- NOTE | 2018-03-22 12:10 | PN ---
Subjective Date of Service: 03/22/18 Interval History: Patient seen and examined at bedside. Denies fever, chills, shortness of breath , chest discomfort, N/V/D. Pt continues to have baseline tremors. She denies pain at this time. Family History: Unchanged from Admission Social History: Unchanged from Admission Past Medical History: Unchanged from Admission Objective Active Medications: Acetaminophen (Tylenol Tab*) 650 mg PO Q4H PRN Reason: PAIN Amoxicillin/Clavulanate Potassium (Augmentin Tab*) 500 mg PO BID RENEE Carbidopa/Levodopa (Sinemet 25/100 Tab(*)) 1 tab PO 0900,1400,2100 RENEE Citalopram Hydrobromide (Celexa Tab*) 20 mg PO DAILY RENEE Docusate Sodium (Colace Cap*) 100 mg PO BID PRN Reason: CONSTIPATION Heparin Sodium (Porcine) (Heparin Vial(*)) 5,000 units SUBCUT 0000,0800,1600 RENEE Morphine Sulfate (Morphine Inj ((Syringe))*) 2 mg IV Q4H PRN Reason: PAIN - MILD Omeprazole (Prilosec Cap*) 20 mg PO DAILY RENEE Ondansetron HCl (Zofran Inj*) 4 mg IV Q6H PRN Reason: NAUSEA Polyethylene Glycol/Electrolytes (Miralax*) 17 gm PO DAILY RENEE Rivastigmine (Exelon Patch(Nf)) 1 patch TRANSDERM DAILY RENEE Tramadol HCl (Ultram*) 50 mg PO Q12H PRN Reason: PAIN Vital Signs - 8 hr 03/22/18 03/22/18 03/22/18 07:31 08:00 11:33 Temperature 98.4 F 98.0 F Pulse Rate 78 235 Respiratory 16 16 18 Rate Blood Pressure 138/71 (mmHg) O2 Sat by Pulse 93 92 Oximetry 03/22/18 11:49 Temperature Pulse Rate 67 Respiratory Rate Blood Pressure 131/66 (mmHg) O2 Sat by Pulse Oximetry Oxygen Devices in Use Now: None Appearance: NAD, laying in bed Ears/Nose/Mouth/Throat: Mucous Membranes Moist Respiratory: Symmetrical Chest Expansion and Respiratory Effort, Clear to Auscultation Cardiovascular: NL Sounds; No Murmurs; No JVD, RRR Abdominal: NL Sounds; No Tenderness; No Distention Extremities: No Edema Skin: No Rash or Ulcers Neurological: NL Muscle Strength and Tone, - - Alert and Oriented to self, states that she is at [place]. 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 - Patient Problems (1) Compression fracture Code(s): [id number] - SNOMED Code(s): 982852351 Comment: - Per Dr. Luu she is a candidate for surgery, but the question remains whether this would help her prognosis for ambulation, sitting upright, or standing overall, given her underlying neurologic disorder that has caused a decline in her functional capacity even before the fracture, according to her sister Ambreen - Surgery naturally comes with risks but might yenifer her the ability to sit up in her wheelchair. If she does so, she may be at risk for more compression fractures requiring more surgery in the future. - Not operating comes with the risks of worsening neurologic function and paralysis, but also the possibility that she may continue to heal with bracing. - Discussed with Dr. Luu and Radha's sister Ambreen and plan is for conservative treatment (2) Corticobasal degeneration Code(s): G31.85 - CORTICOBASAL DEGENERATION SNOMED Code(s): 71251481 Comment: - Continue carbidopa/levodopa and rivastigmine (3) UTI (urinary tract infection) Comment: - Urine culture with E coli - Received 3/3 days of Ceftriaxone - Continue Augmentin (4) DVT prophylaxis Code(s): [id number] - SNOMED Code(s): 261090597 Comment: - SQ heparin (5) DNR (do not resuscitate) Status and Disposition: Inpatient. Plan for possible discharge back to rehab on Friday.
--- NOTE | 2018-03-22 22:46 | PN ---
Progress Note - Progress Note Date of Service: 03/22/18 SOAP: Subjective: []Pt seen earlier. No events ON. Tolerates PO. No complains of back pain. Tolerates TLSO brace Objective: []VSS AAOx1-2, ELOY, CN II-XII grossly intact Motor 4-5/5 except deangelo hip flexion 4/5. Increase tone in LEs Sensory grossly intact to light touch. Assessment: []62 yo f , CBGD fall L1 burst fructure, T12 superior compression fracture Plan: [] ]Monitor VS, Neurochecks DC Planning Medical treatment of possible osteopenia/osteoporosis Consider Neurology evaluation. May folow in office in 4 weeks with new XR of T/L spine. Greatly appreciate IM care. Will be available if needed. Mina Antony MD
[2018-03-23] MEDS: Heparin VIAL(*) 5000 UNITS/ML VIAL (FIVE THOUSAND) SUBCUT SCH (08:30)
[2018-03-23] MEDS: Carbidopa/Levodop 25/100 MG TAB(*) PO SCH ×2 (09:08→13:50)
[2018-03-23] MEDS: Citalopram TAB* 20 MG PO SCH (09:08)
[2018-03-23] MEDS: Amoxicillin/Clavulanate TAB* 500 MG PO SCH (09:08)
[2018-03-23] MEDS: Polyethylene Glycol 3350* 17 GM PACKET PO SCH (09:09)
[2018-03-23] MEDS: CMC:Rivastigmine PATCH 9.5 MG(NF) PATCH TRANSDERM SCH (09:09)
--- NOTE | 2018-03-23 09:39 | PN ---
Subjective Date of Service: 03/23/18 Interval History: Patient seen and examined at bedside. Denies fever, chills, shortness of breath , chest discomfort, N/V/D. Pt states that her pain is controlled. She is mostly able to answer yes or no questions. Family History: Unchanged from Admission Social History: Unchanged from Admission Past Medical History: Unchanged from Admission Objective Active Medications: Acetaminophen (Tylenol Tab*) 650 mg PO Q4H PRN Reason: PAIN Amoxicillin/Clavulanate Potassium (Augmentin Tab*) 500 mg PO BID RENEE Carbidopa/Levodopa (Sinemet 25/100 Tab(*)) 1 tab PO 0900,1400,2100 RENEE Citalopram Hydrobromide (Celexa Tab*) 20 mg PO DAILY RENEE Docusate Sodium (Colace Cap*) 100 mg PO BID PRN Reason: CONSTIPATION Heparin Sodium (Porcine) (Heparin Vial(*)) 5,000 units SUBCUT 0000,0800,1600 RENEE Morphine Sulfate (Morphine Inj ((Syringe))*) 2 mg IV Q4H PRN Reason: PAIN - MILD Omeprazole (Prilosec Cap*) 20 mg PO DAILY RENEE Ondansetron HCl (Zofran Inj*) 4 mg IV Q6H PRN Reason: NAUSEA Polyethylene Glycol/Electrolytes (Miralax*) 17 gm PO DAILY RENEE Rivastigmine (Exelon Patch(Nf)) 1 patch TRANSDERM DAILY RENEE Tramadol HCl (Ultram*) 50 mg PO Q12H PRN Reason: PAIN Vital Signs - 8 hr 03/23/18 03/23/18 03/23/18 03:55 07:29 08:00 Temperature 97.4 F 97.6 F Pulse Rate 65 59 Respiratory 20 18 18 Rate Blood Pressure 115/72 148/67 (mmHg) O2 Sat by Pulse 97 99 Oximetry Oxygen Devices in Use Now: None Appearance: NAD, laying in bed Ears/Nose/Mouth/Throat: Mucous Membranes Moist Respiratory: Symmetrical Chest Expansion and Respiratory Effort, Clear to Auscultation Cardiovascular: NL Sounds; No Murmurs; No JVD, RRR Abdominal: NL Sounds; No Tenderness; No Distention Extremities: No Edema Skin: No Rash or Ulcers Neurological: - - Alert and Oriented to self Nutrition: Taking PO's Result Diagrams: 03/17/18 16:31 03/17/18 16:31 Microbiology and Other Data: Microbiology 03/17/18 17:41 Urine Culture - Preliminary Urine Escherichia Coli 03/18/18 00:13 Nasal Screen MRSA (PCR) - Final Nasal Mrsa Not Detected Assess/Plan/Problems-Billing Assessment: 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 - Patient Problems (1) Compression fracture Code(s): [id number] - SNOMED Code(s): 213938710 Comment: - Per Dr. Luu she is a candidate for surgery, but the question remains whether this would help her prognosis for ambulation, sitting upright, or standing overall, given her underlying neurologic disorder that has caused a decline in her functional capacity even before the fracture, according to her sister Ambreen - Surgery naturally comes with risks but might yenifer her the ability to sit up in her wheelchair. If she does so, she may be at risk for more compression fractures requiring more surgery in the future. - Not operating comes with the risks of worsening neurologic function and paralysis, but also the possibility that she may continue to heal with bracing. - Discussed with Dr. Luu and Radha's sister Ambreen and plan is for conservative treatment - Continue pain medication and will start calcium/Vit D - Recommend outpatient bone density studies (2) Corticobasal degeneration Code(s): G31.85 - CORTICOBASAL DEGENERATION SNOMED Code(s): 99406992 Comment: - Continue carbidopa/levodopa and rivastigmine (3) UTI (urinary tract infection) Comment: - Urine culture with E coli - Received 3/3 days of Ceftriaxone - Continue Augmentin (1 more day for 7 days of ABX treatment) (4) DVT prophylaxis Code(s): [id number] - SNOMED Code(s): 223418213 Comment: - SQ heparin (5) DNR (do not resuscitate) Status and Disposition: Inpatient. Plan for possible discharge back to rehab on Friday.
[2018-03-23] MEDS: Omeprazole CAP* 20 MG PO SCH (10:27)
--- NOTE | 2018-03-23 13:14 | DS ---
CC: [facility] * DATE OF ADMISSION: 03/17/2018. DATE OF DISCHARGE: 03/23/2018. ATTENDING PHYSICIAN: Dr. Abdi Rodgers * (dictated by Windy Sharma NP). [facility]. PRIMARY DIAGNOSES: 1. T12 and L1 compression fractures. 2. E. coli urinary tract infection. SECONDARY DIAGNOSES: 1. Corticobasal ganglionic degeneration. 2. GERD. 3. Anxiety and depression. CONSULTATIONS WHILE IN THE HOSPITAL: Dr. Rizwan Antony with Neurosurgery. STUDIES WHILE IN THE HOSPITAL: 1. Lumbar spine CT on 03/17/2018: Radiologist's impression: Age indeterminate compression deformities of T12 and L1. At L1, there is retropulsion of bony fragments at the posterior superior endplate of the vertebral body contributing to moderate central canal stenosis. Degenerative changes noted at additional levels as well. 2. Chest x-ray on 03/17/2018: Radiologist's impression: No radiographic evidence for acute cardiopulmonary abnormality on this single AP view chest x- ray. 3. Lumbar spine x-ray on 03/17/2018: Radiologist's impression: Degenerative changes as described above including age indeterminate compression deformities of T12 and L1. 4. Thoracic spine CT on 03/17/2018: Radiologist's impression: Compression deformities of T12 and L1 as were identified and described on the same day CT of the lumbar spine. There are degenerative changes of the thoracic spine more superiorly, but no compression fractures and severe at T12 and L1. 5. Lumbar spine MRI on 03/17/2018: Radiologist's impression: Acute/subacute compression fractures of T12 and L1 with retropulsion of the superior endplate of L1 resulting in moderate narrowing of the central canal at this level. Degenerative disc disease and osteoarthritis. There is mild narrowing of central canal at L3 to L4. There is multilevel neuroforaminal narrowing as described above. 6. Brain CT on 03/20/2018: Radiologist's impression: No CT apparent acute intracranial abnormality. Right maxillary sinusitis. Degenerative changes of the cervical spine without fracture or severe spondylolisthesis DISCHARGE MEDICATIONS: New home medications: 1. Acetaminophen 650 mg oral every 4 hours as needed for pain. 2. Colace 100 mg oral twice daily as needed for constipation. 3. Tramadol 50 mg oral every 12 hours as needed for pain. 4. Augmentin 500 mg oral twice daily, last dose will be in the a.m. on March 24. 5. Calcium Carbonate vitamin D one tablet oral daily. 6. MiraLax 17 gm oral daily as needed for constipation. Continued home medications: 1. Protonix 40 mg oral daily. 2. Lexapro 10 mg oral daily. 3. Exelon patch 4.6 mg transdermal every day. 4. Sinemet 25/100 one tablet oral three times daily. 5. Claritin 10 mg oral daily as needed for allergy symptoms. Discontinued home medications: 1. Nuedexta. HISTORY OF PRESENT ILLNESS/HOSPITAL COURSE: Ms. Dubon is a 62-year-old female with a past medical history significant for chronic basal ganglionic degeneration and left breast cancer who [place] [facility] [place] for back imaging. The patient had been living in an assisted living facility in [place], [place] until approximately October 2017 at which time she had a fall, became less and less mobile. At that time, she was sent to [facility] for subacute rehab. From there, she was ultimately transitioned into long-term care. The patient had a known traumatic injury to her back; however, she had not been able to be followed up by neurosurgery. Ultimately, an appointment had been made with Dr. Antony and she had seen him in follow-up. He recommended that she come to the emergency room and be admitted for evaluation and management of a presumed severe compression fracture. While in the emergency room, the patient had labs showing a mild leukocytosis. Urinalysis was positive for trace leukocyte esterase, 1+ WBC's, and 2+ bacteria. She had a lumbar spine CT showing an age indeterminate compression deformity of T12 and L1 and a thoracic spine CT showing again compression deformities of T12 and L1. She had a chest x-ray with no acute findings. A lumbar spine x-ray showing compression fractures at T12 and L1 and a thoracic spine and a thoracic spine x-ray showing deformities at T12 and L1. Ultimately , the Hospitalists were asked to evaluate the patient for admission. While in the hospital, the patient was seen in consultation by Dr. Antony. He felt that the patient could benefit from a surgical intervention, but the question remained whether or not this would help her prognosis with ambulation, sitting upright, and standing overall due to her underlying neurological disorder that was causing a decline in her functional capacity even prior to the fracture. The options were discussed with her sister, Ambreen, who ultimately decided for conservative treatment. The patient was fitted with a TLSO brace. During her stay, the patient continued to have some baseline tremors due to her underlying corticobasal degeneration. She was continued on her Exelon patch and Sinemet. The patient was found to have an E. coli urinary tract infection. She received three days of Ceftriaxone and three days of Augmentin during her stay. The patient did have a period of increased confusion during her stay. She had a brain CT and cervical spine CT with no new acute findings. She was seen in consultation by Physical Therapy who felt that she was unable to follow commands and required a Guillaume lift, and was felt to be at her baseline motility. Ms. Dubon is stable for return to [facility] today. Vital signs are as follows: Temperature 97.6, heart rate 59, respiratory rate 18, O2 sat 99 percent on room air, blood pressure 148/67. DISCHARGE PLAN: Ms. Dubon will be discharged to [facility] today. She will be activity as tolerated. She should have Physical Therapy and Occupational Therapy evaluations and follow their recommendations for mobility. In regards to her T12 and L1 compression fractures, she should continue to wear a TLSO brace that she has previously been fitted with. She should have a follow-up with Dr. Antony in approximately four weeks and Dr. Antony will arrange for an x-ray around the time of that appointment. Consider having the patient see her outpatient neurologist to see if there are any adjustments that can be made in her medications. She has been resumed on her Exelon and Sinemet. The patient was previously on Nuedexta, but the patient 's sister feels this was not helping and she wanted it discontinued. The patient has not received this for seven days during her hospitalization as it was not on formulary here, so this has been discontinued at discharge. In regards to the patient's urinary tract infection, so far she has received a total of six days of treatment. She should receive Augmentin, a dose this evening and another dose in the morning, and then this can be discontinued. She should be seen in follow-up by a provider at [facility] per their protocol. The patient should be started on medical treatment for osteopenia/ osteoporosis. For now, I am going to start her on a calcium and vitamin D supplement. She should have bone density studies outpatient and then can be put on the proper treatment after those have been completed. The patient should return to an emergency room for any complaints of chest pain or shortness of breath, or changes in her neurological function such as loss of bowel or bladder control or a one-sided weakness. This is a summarized report of a complex medical history and hospital stay. For further details, please see the entire medical record. Time for this discharge was approximately 50 minutes, greater than half of that was spent with the patient discussing discharge plans and instructions. CONDITION ON DISCHARGE: Stable. Reviewed by ROSY ARTHUR 03/25/18 1815 [id number]/[facility] #: [id number] KENNY
[2018-03-23 13:56] VITALS: BP 112/72
== END 2018-03-23 14:20 | DRG 347 ==
LOC: ED 15:40 → SSU 23:17 → OBSVTOIN 03-18 15:32 → SSU 03-20 12:31
PROVIDERS: ADMIT Pediatrics; ATTEND Internal Medicine
DX: S32.011A Stable burst fracture of first lumbar vertebra, initial encounter for closed fracture (principal); S22.088A Other fracture of T11-T12 vertebra, initial encounter for closed fracture; N39.0 Urinary tract infection, site not specified; G20 Parkinson's disease; F02.80 Dementia in other diseases classified elsewhere, unspecified severity, without behavioral disturbance, psychotic disturbance, mood disturbance, and anxiety; B96.20 Unspecified Escherichia coli [E. coli] as the cause of diseases classified elsewhere; G31.85 Corticobasal degeneration; K21.9 Gastro-esophageal reflux disease without esophagitis; F41.9 Anxiety disorder, unspecified; F32.9 Major depressive disorder, single episode, unspecified; Z66 Do not resuscitate; W19.XXXA Unspecified fall, initial encounter; Y92.099 Unspecified place in other non-institutional residence as the place of occurrence of the external cause; Z85.3 Personal history of malignant neoplasm of breast; Z79.899 Other long term (current) drug therapy; Z88.8 Allergy status to other drugs, medicaments and biological substances; Z83.3 Family history of diabetes mellitus; Z80.1 Family history of malignant neoplasm of trachea, bronchus and lung; Z87.891 Personal history of nicotine dependence
CPT/HCPCS: 36415; 70450; 71045; 72070; 72100; 72125; 72128; 72131; 72148; 80053; 81003; 81015; 83605; 84443; 84484; 85025; 85610; 85730; 87077; 87086; 87186; 87641; 93005; 99283; A9270-GY; J0696; J1644; J2270